=== PATIENT | female | born 1990 | race Two or more races ===

== ENCOUNTER 2022-04-28 19:56 | Emergency (ER) | payer OTHER ==
[~2022-04-28] VITALS: Ht 170.2 cm; Wt 100.7 kg
== END 2022-04-28 23:27 | disposition home or self-care (01) ==
LOC: ER 19:56
DX: R10.2 Pelvic and perineal pain (principal)

== ENCOUNTER 2022-04-29 13:51 | Day surgery (SDC) | payer OTHER ==
[~2022-04-29] VITALS: Ht 170.2 cm; Wt 102.1 kg
--- NOTE | 2022-04-29 12:40 | NUR ---
PACIENTE FEMINA ALERTA Y ORIENTADA X3, QUIEN LLEGA POR REFERIDO MEDICO
== END 2022-04-29 20:25 | disposition home or self-care (01) ==
LOC: ER 13:51 → SEC-K 13:51 → CIR.AMB 13:51 → EDSTATUS 17:30 → CIR.AMB 20:25 → SEC-K 20:25
PROVIDERS: ATTEND General Practice
DX: O02.1 Missed abortion (principal); Z20.822 Contact with and (suspected) exposure to COVID-19; Z88.0 Allergy status to penicillin